=== PATIENT | female | born 1980 | race African-American/Black ===

== ENCOUNTER 2018-09-25 06:09 | Emergency (ER) | payer OTHER ==
[~2018-09-25] VITALS: Ht 162.6 cm; Wt 70.0 kg
[2018-09-25 06:12] VITALS: BP 168/95
--- NOTE | 2018-09-25 06:43 | NUR ---
PT REFUSING LAB DRAW. RADHA GREER OBTAINING AN ORDER FOR DRAW. PA AWARE.
--- NOTE | 2018-09-25 07:19 | NUR ---
FAXED COURT ORDER FOR BLOOD DRAW RECEIVED, WAS PRESENTED TO PT BY Alanis CORTEZ. PT WILL ALLOW BLOOD DRAW. ADMISSIONS COUNSELOR NOTIFIED.
== END 2018-09-25 07:38 | disposition home or self-care (01) ==
LOC: ED 07:32
DX: Z77.21 Contact with and (suspected) exposure to potentially hazardous body fluids (principal)
CPT/HCPCS: 36415; 86705; 86706; 86803; 87340; 87806; 99283; G0475